=== PATIENT | female | born 1965 | race Caucasian/White ===

== ENCOUNTER 2022-09-14 11:43 | Emergency (ER) | payer OTHER ==
[~2022-09-14] VITALS: Ht 170.2 cm; Wt 74.8 kg
--- NOTE | 2022-09-14 11:59 | NUR ---
BIBS C/O VAGINAL ITCH WITH BILAT LOWER AB PAIN X 4 DAYS. NO FLANK PAIN, NO HEMATURIA
--- NOTE | 2022-09-14 12:00 | NUR ---
PT SEEN BY MD/PA AT BEDSIDE FOR EVAL
[2022-09-14] MEDS ORDERED: FLUC150T PO (12:15)
[2022-09-14] MEDS ORDERED: NITR100C6 PO (12:15)
--- NOTE | 2022-09-14 12:15 | NUR ---
URINE SAMPLE COLLECTED AND SENT TO LAB
--- NOTE | 2022-09-14 12:23 | NUR ---
Patient discharged to home in stable condition. Written and verbal after care instructions given. Patient verbalizes understanding of instruction.
[2022-09-14 12:27] VITALS: BP 140/70
[2022-09-14 12:55] LABS: BILIRUBIN,URINE NEGATIVE (NEGATIVE); COLOR,URINE YELLOW (YELLOW); LEUKOCYTE ESTERASE ,URINE NEGATIVE (NEGATIVE); NITRITE, URINE NEGATIVE (NEGATIVE); PROTEIN,URINE NEGATIVE (NEGATIVE); UGLUCOSE NEGATIVE (NEGATIVE); UROBILINOGEN,URINE 0.2 EU/dL (0.2)
[2022-09-14 13:04] LABS: BACTERIA,URINE Rare /HPF (None Seen); SQUAMOUS EPITHELIAL CELL,UR Many /HPF (None Seen); WBC,URINE 0-2 /HPF (0-3)
== END 2022-09-14 12:23 | disposition home or self-care (01) ==
LOC: ER 11:52
DX: B37.31 Acute candidiasis of vulva and vagina (principal); Z79.899 Other long term (current) drug therapy; Z60.2 Problems related to living alone; Z88.2 Allergy status to sulfonamides
CPT/HCPCS: 81001